=== PATIENT | male | born 2000 | race Hispanic/Latino ===

== ENCOUNTER 2018-10-28 10:16 | Emergency (ER) | payer OTHER ==
[2018-10-28] MEDS ORDERED: BUPIVACAINE/PF 0.5% 30ML VIAL ONE (10:31)
[2018-10-28] MEDS ORDERED: TETANUS/DIPHTHERIA TOXOID [ADULT] 0.5 ML VIAL IM ONE (10:32)
[2018-10-28] MEDS ORDERED: LIDOCAINE HCL 1% 20 ML VIAL ONE (10:32)
== END 2018-10-28 11:41 | disposition home or self-care (01) ==
LOC: EDH 10:16
DX: S61.112A Laceration without foreign body of left thumb with damage to nail, initial encounter (principal); W26.0XXA Contact with knife, initial encounter; Y93.89 Activity, other specified; Y92.69 Other specified industrial and construction area as the place of occurrence of the external cause; Y99.8 Other external cause status
CPT/HCPCS: 12002; 90471; 90714; 99283; J3490